=== PATIENT | female | born 1950 | race Caucasian/White ===

== ENCOUNTER 2022-09-15 08:56 | Emergency (ER) | payer MEDICARE, MEDICAID, SELFPAY ==
--- NOTE | ~2022-09-15 | XR_ITS ---
EXAMINATION: XR shoulder RT min 2V DATE: 09/15/2022 09:54 INDICATION: Right shoulder injury. TECHNIQUE: 4 views of right shoulder were obtained. COMPARISON: None. FINDINGS: Bone alignment is normal. No fracture. There is mild osteoarthritis of glenohumeral joint a nd moderate osteoarthritis of the acromioclavicular joint. There is mild calcific tendinitis of the r otator cuff. There are changes of anterior fusion procedure in cervical spine. IMPRESSION: 1. Polyarticular osteoarthritis. 2. Calcific tendinitis of the rotator cuff. Reviewed, dictated and finalized at location A.
[2022-09-15 09:15] VITALS: BP 119/71; PULSE 81; RESP 16; TEMP 36.4; O2SAT 99
--- NOTE | 2022-09-15 09:45 | ED.GENADULT ---
HPI - General Adult General Chief complaint: Unspecified Stated complaint: Right Arm Pain/UTI Source: patient Mode of arrival: ambulatory Limitations: no limitations History of Present Illness HPI narrative: 8-year-old female presents to [facility] with complaints of possible urinary tract infection and right shoulder pain. patient reports that 3 days ago she tripped over an [place] at her home and fell on outstretched right hand and has been having right shoulder pain and decreased range of motion to her right shoulder since. Patient reports that she uses a fentanyl patch and Oxycodone due to fibromyalgia. patient also reports possible urinary tract infection and she reports hematuria and lower abdominal pressure for the past 1-2 days. Patient has been taking [id number] azo. Patient denies fever, body aches, chills, nausea, vomiting or diarrhea. Onset (ago): day(s) (3) Relieving factors: none and immobilization Exacerbating factors: movement Associated symptoms: denies other symptoms Related Data Home Medications Medication Instructions Recorded Confirmed cetirizine 10 mg tablet mg 09/15/22 citalopram 20 mg tablet mg 09/15/22 estradiol 1 mg tablet mg 09/15/22 fentanyl 50 mcg/hr transdermal 09/15/22 patch furosemide 20 mg tablet mg 09/15/22 gabapentin 300 mg capsule mg 09/15/22 hydrocortisone 5 mg tablet mg 09/15/22 oxycodone 5 mg tablet mg 09/15/22 phentermine 37.5 mg tablet mg 09/15/22 ropinirole 2 mg tablet mg 09/15/22 trazodone 100 mg tablet mg 09/15/22 Allergies Allergy/AdvReac Type Severity Reaction Status Date / Time cefadroxil Allergy Unknown HIVES Verified 09/15/22 09:50 tolmetin Allergy Unknown HIVES Verified 09/15/22 09:50 Review of Systems Constitutional: Constitutional: Denies body ache(s), Denies chills, Denies night sweats and Denies poor appetite Cardiovascular: Cardiovascular: Denies chest pain, Denies rapid heart rate and Denies radiating jaw, neck or arm pain Respiratory: Respiratory: Denies chest congestion, Denies cough and Denies hemoptysis Gastrointestinal: Gastrointestinal: Denies melena and Denies bloating Genitourinary: Genitourinary: Reports hematuria Comments: Lower abdominal pressure Musculoskeletal: Comments: right shoulder pain and decreased range of motion Neurologic: Denies vertigo, Denies dizziness and Denies syncope PMFSH Comments At time of signature, I agree with nursing past medical, surgical, social and family history. There is no relevant family history pertinent to the presenting complaint. Exam Const: General: cooperative, healthy appearing, comfortable, no acute distress and well developed Nutritional Appearance: average body habitus Orientation/consciousness: patient oriented x3 Limitations: no limitations HENMT: Head: normal to inspection Neck: Neck: normal visual inspection and full ROM Resp: Effort & Inspection: normal respiratory effort, able to speak in complete sentences, normal respiratory pattern and no audible wheezes Auscultation: clear to auscultation bilaterally Cardio: Jugular venous distension: no JVD Rate: regular rate Rhythm: regular rhythm GI: Inspection: normal to inspection and non-distended GI Palp: Yes Other GI palpation findings present ( mild pain upon palpation to suprapubic region) : General: Yes bladder normal to inspection and Yes no CVA tenderness External Female Exam: other (exam deferred) Back/Spine/Pelvis: Back: no CVA tenderness Skin: General skin exam: normal color and no rashes or lesions noted Rashes: no rashes Wounds: no wounds Neuro: General: patient oriented x3 Cognition (Neuro): normal cognition Speech: normal speech Extrem: General: normal to inspection and capillary refill normal Right upper extremity: normal capillary refill and shoulder/upper arm normal to inspection, tenderness ( anterior aspect of right shoulder) and abnormal ROM pain with passive ROM ( ri
== END 2022-09-15 10:20 | disposition home or self-care (01) ==
PROVIDERS: Emergency Provider Nurse Practitioner Family; PCP Family Medicine
DX: N30.01 Acute cystitis with hematuria (principal); M25.511 Pain in right shoulder; M79.7 Fibromyalgia; M19.90 Unspecified osteoarthritis, unspecified site
CPT/HCPCS: 73030; 81003; 87086; 87088; 99213; A4565; G0463

== ENCOUNTER 2024-03-08 15:40 | Emergency (ER) | payer MEDICARE, MEDICAID, SELFPAY ==
--- NOTE | ~2024-03-08 | XR_ITS ---
EXAMINATION: XR chest 2V DATE: 03/08/2024 17:00 INDICATION: Productive cough. TECHNIQUE: Frontal and lateral views of the chest were obtained. COMPARISON: None. FINDINGS: There is mild atelectasis in the lingula. No pleural effusion or pneumothorax. The heart si ze is normal. There are changes of anterior fusion procedures in cervical spine. IMPRESSION: 1. Mild atelectasis in the lingula. Reviewed, dictated and finalized at location A. [employer] PROF[employer]
[2024-03-08 15:51] VITALS: BP 132/83; PULSE 88; RESP 20; TEMP 36.3; O2SAT 98
--- NOTE | 2024-03-08 16:50 | ED_ITS ---
HPI - URI/Sore Throat General Chief Complaint: Upper Respiratory Infection Stated Complaint: Cough/SOB Time Seen by Provider: 03/08/24 16:50 Source: patient, RN notes reviewed and old records reviewed Mode of arrival: ambulatory Limitations: no limitations History of Present Illness HPI Narrative: Patient recently treated for pneumonia with Z-Neel presents with complaints of continued symptoms. She is nearly finished with Medrol Dosepak, just finished a Z-Neel today. She reports that she has continued left upper back pain and feels as though it might even be getting worse. She reports a continued productive cough and lack of energy. She denies any shortness of breath. She voices no other concerns or complaints today Related Data Home Medications ?Medication ?Instructions ?Recorded ?Confirmed ?Last Taken ?Type cetirizine 10 mg tablet mg 09/15/22 Unknown History citalopram 20 mg tablet mg 09/15/22 Unknown History estradiol 1 mg tablet mg 09/15/22 Unknown History fentanyl 50 mcg/hr transdermal 09/15/22 Unknown History patch furosemide 20 mg tablet mg 09/15/22 Unknown History gabapentin 300 mg capsule mg 09/15/22 Unknown History hydrocortisone 5 mg tablet mg 09/15/22 Unknown History oxycodone 5 mg tablet mg 09/15/22 Unknown History phentermine 37.5 mg tablet mg 09/15/22 Unknown History ropinirole 2 mg tablet mg 09/15/22 Unknown History trazodone 100 mg tablet mg 09/15/22 Unknown History amitriptyline 50 mg tablet mg 03/08/24 Unknown History atorvastatin 10 mg tablet mg 03/08/24 Unknown History buspirone 7.5 mg tablet mg 03/08/24 Unknown History fexofenadine 180 mg tablet mg 03/08/24 Unknown History hydroxyzine HCl 25 mg tablet mg 03/08/24 Unknown History Allergies Allergy/AdvReac Type Severity Reaction Status Date / Time cefadroxil Allergy Unknown HIVES Verified 03/08/24 15:45 tolmetin Allergy Unknown HIVES Verified 03/08/24 15:45 Review of Systems Review of Systems: All systems reviewed & are unremarkable except as noted in HPI and below Constitutional: Constitutional: Reports no additional constitutional complaints and Reports lethargy ENT: Reports system reviewed and no additional complaints, except as documented Cardiovascular: Cardiovascular: Reports no additional cardiovascular complaints Respiratory: Respiratory: Reports no additional respiratory complaints, Reports chest congestion, Reports cough, Reports excessive phlegm production and Reports pain with cough Gastrointestinal: Gastrointestinal: Reports no additional gastrointestinal complaints PMFSH Comments At the time of my signature, I reviewed and agree with the nursing past medical, surgical, social, and family history. There is no relevant family history pertinent to the patient complaint. Exam Const: General: cooperative, no acute distress, alert and awake Orientation/consciousness: oriented to person, oriented to place and oriented to time HENMT: Head: normal to inspection Resp: Effort & Inspection: normal respiratory effort and able to speak in complete sentences Auscultation: clear to auscultation bilaterally, no crackles, no rales, no rhonchi and no wheezes Cardio: Palpation: normal PMI Rate: regular rate Rhythm: regular rhythm Heart sounds: S1 normal heart sound present and S2 normal heart sound present Neuro: General: oriented to person, oriented to place and oriented to time Cranial nerves: Yes CN's II-XII intact bilaterally Psych: Appearance: grossly normal Thought process: Normal thought process present Insight: Good insight present (Psych) Judgement: Good judgement present (Psych) Course Course Level of Care: Express Care Visit Vital Signs Vital signs: Vital Signs Temperature 97.4 F L 03/08/24 15:51 Pulse Rate 88 03/08/24 15:51 Respiratory Rate 20 03/08/24 15:51 Blood Pressure 132/83 03/08/24 15:51 Pulse Oximetry 98 03/08/24 15:51 Oxygen Delivery Room Air 03/08/24 15:51 Temperature 97.4 F L 03/08/24 15:51 Pulse Rate 88 03/08/24 15:51 Respiratory Rate 20 03/08/24 15:51 Blood Pressure 132/83 03/08/24 15:51 Pulse Oximetry 98 03/08/24 15:51 Oxygen Delivery Room Air 03/08/24 15:51 Reviewed MDM - URI/Sore Throat MDM Narrative Medical decision making narrative: Reassuring physical exam. Left upper lobe appears hazy on x-ray. [place] with doxycycline. And albuterol. Patient nontoxic appearing. Stable for discharge home p.o. antibiotic therapy. Discharge instructions reviewed with patient, as well as provided in writing per nursing staff. The instructions also include specific and strict return/GO TO THE ER as well as f/u information. All questions have been answered, and the patient deny any further questions with discharge and discharge plan. Some parts of this dictation were generated by voice recognition software and may contain typographical and/or grammatical inaccuracies. Differential Diagnosis Differential diagnosis: Likely upper respiratory infection, otitis media, sinusitis, viral infection, influenza and pharyngitis Imaging Data My impression: Left upper lobe pneumonia Radiologist's impression: [facility] [address] [place] [address] XRay Report Signed Patient: Cesia Alexander : 1950 MR#: [id number] Age: 73 Acct:[id number] Loc: [facility] ADM Date: 03/08/24Attending Dr: Ordering Physician: Yanet Desir FNP Date of Service: 03/08/24 Procedure(s): XR chest 2V Accession Number(s): [id number] cc: Yanet Desir FNP; Rupert, Prudencio Erazo MD~ EXAMINATION: XR chest 2V DATE: 03/08/2024 17:00 INDICATION: Productive cough. TECHNIQUE: Frontal and lateral views of the chest were obtained. COMPARISON: None. FINDINGS: There is mild atelectasis in the lingula. No pleural effusion or pneumothorax. The heart size is normal. There are changes of anterior fusion procedures in cervical spine. IMPRESSION: 1. Mild atelectasis in the lingula. Reviewed, dictated and finalized at location A. POLISHER Dictated By: Guillermo Vyas MD 03/08/24 0411 Signed By: <Electronically signed by Guillermo Vyas MD in OV> Discharge Plan Discharge Clinical Impression: Pneumonia Qualifiers: Pneumonia type: due to unspecified organism Laterality: left Lung location: upper lobe of lung Qualified Code(s): J18.9 - Pneumonia, unspecified organism Patient Disposition: Home, Self-Care Condition: Stable Instructions: Antibiotic Form, Community Acquired Pneumonia (ED) Additional Instructions: Take medications as prescribed. Follow with primary care provider. Emergency department for new or worse symptoms Patient Language: Kiswahili Prescriptions: New doxycycline hyclate 100 mg capsule 100 mg PO BID Qty: 20 0RF albuterol sulfate [Ventolin HFA] 90 mcg/actuation HFA aerosol inhaler 2 puff inhalation QID PRN (Reason: shortness of breath or wheezing) Qty: 8.5 0RF No Action atorvastatin 10 mg tablet fexofenadine 180 mg tablet amitriptyline 50 mg tablet buspirone 7.5 mg tablet hydroxyzine HCl 25 mg tablet hydrocortisone 5 mg tablet fentanyl 50 mcg/hr patch 72 hour cetirizine 10 mg tablet phentermine 37.5 mg tablet citalopram 20 mg tablet estradiol 1 mg tablet trazodone 100 mg tablet ropinirole 2 mg tablet gabapentin 300 mg capsule furosemide 20 mg tablet oxycodone 5 mg tablet Follow-up/Referrals: Rupert,Prudencio Erazo MD [Primary Care Provider] - 2 Weeks Time of Disposition: 17:15
== END 2024-03-08 17:20 | disposition home or self-care (01) ==
PROVIDERS: Emergency Provider Nurse Practitioner Family; PCP Family Medicine
DX: J18.1 Lobar pneumonia, unspecified organism (principal); I10 Essential (primary) hypertension; E78.00 Pure hypercholesterolemia, unspecified; M19.90 Unspecified osteoarthritis, unspecified site; M79.7 Fibromyalgia
CPT/HCPCS: 71046; 99213; G0463

== ENCOUNTER → 2024-03-31 13:27 | Outpatient (CLI) | payer MEDICARE, MEDICAID, SELFPAY ==
--- NOTE | ~2024-03-31 | XR_ITS ---
EXAMINATION: XR chest 2V DATE: 03/31/2024 13:49 INDICATION: Cough. TECHNIQUE: Frontal and lateral views of the chest were obtained. COMPARISON: Chest 2 views 03/08/2024 FINDINGS: There is mild atelectasis in left lower lung zone. Calcified right lung nodules are consist ent with old granulomas disease. No pleural effusion or pneumothorax. The heart size is normal. There are changes of anterior fusion procedure in cervical spine. IMPRESSION: 1. Mild atelectasis in left lower lung zone. Reviewed, dictated and finalized at location B. [employer] MAN
== END ==
LOC: EXPCRAD 13:30
PROVIDERS: PCP Family Medicine; Visit Provider Family Medicine
DX: R05.9 Cough, unspecified (principal); R91.8 Other nonspecific abnormal finding of lung field
CPT/HCPCS: 71046